=== PATIENT | female | born 1975 | race Caucasian/White ===

== ENCOUNTER 2016-12-06 10:08 | Day surgery (SDC) | payer OTHER ==
[2016-12-05 14:53] VITALS: BMI 22.2
[~2016-12-06 10:08] MED LIST: ACETAMINOPHEN 325 MG TABLET (FP) PO PRN; CEFAZOLIN 1 GM/D5W 50 ML IVPB ONE
[2016-12-06] MEDS ORDERED: LIDOCAINE HCL 2% (20ML MULTI-DOSE VIAL) NR ONE (10:32)
[2016-12-06] MEDS ORDERED: BUPIVACAINE HCL/PF 0.5% (5MG/ML) 10 ML VIAL ONE (10:32)
[2016-12-06] MEDS ORDERED: MIDAZOLAM HCL 2 MG/2 ML SINGLE DOSE VIAL ONE (11:52)
[2016-12-06] MEDS ORDERED: DEXAMETHASONE SOD PHOSPHATE 4 MG/1 ML VIAL ONE (11:56)
[2016-12-06] MEDS ORDERED: PROPOFOL 20 ML ONE ×4 (11:56)
[2016-12-06] MEDS ORDERED: LIDOCAINE HCL 2% (50ML VIAL) PNB ONE (12:20)
[2016-12-06] MEDS ORDERED: BUPIVACAINE HCL/PF 0.5% (5MG/ML) 10 ML VIAL IJ ONE (12:50)
[2016-12-06] MEDS ORDERED: DEXAMETHASONE SOD PHOSPHATE 4 MG/1 ML VIAL NR ONE (12:50)
[2016-12-06 13:16] VITALS: TEMP 97.9
[2016-12-06 14:08] VITALS: BP 115/68; PULSE 52
--- NOTE | 2016-12-08 13:22 | PATH ---
Surgical Pathology Report Patient Name: FRANKI SANTIAGO [facility]. Rec. #: [id number] /Age/Gender: 1975 (Age: 41) / F Account: [id number] Location: [facility] Taken: 12/06/2016 Received: 12/06/2016 Reported: 12/08/2016 Physicians: Matt Reza Specimen(s) Received NEUROMA RIGHT FOOT Clinical History Mortons neuroma right foot Final Diagnosis SOFT TISSUE, RIGHT FOOT, EXCISION: BENIGN PERIPHERAL NERVE WITH DISTORTED ARCHITECTURE CONSISTENT WITH NEUROMA, WITH ATTACHED SYNOVIUM. Electronically Signed Joby Rogel M.D. Gross Description Received in formalin, labeled "neuroma right foot," are 2 nelson soft tissue fragments measuring 0.8 and 1.0 cm in greatest dimension. The larger portion is bisected and the specimen is entirely submitted in one cassette. 12/07/201612/07/2016
--- NOTE | 2016-12-10 05:58 | OP ---
DATE OF OPERATION: 12/06/2016 PREOPERATIVE DIAGNOSIS: Cesar neuroma, right foot. POSTOPERATIVE DIAGNOSIS: Cesar neuroma, right foot. PROCEDURE: Excision of Cesar neuroma, right foot. ANESTHESIA: Local with MAC (6.0 mL lidocaine 2% plain used). HEMOSTASIS: Attained using a pneumatic ankle tourniquet, right ankle, at 250 mmHg. ESTIMATED BLOOD LOSS: Less than 1.0 mL total. SURGEON: Matt Sommers DPM ACADEMIC COUNSELOR: Arvin Pulido MD PROCEDURE: With patient's vital signs noted to be stable, she was brought to the operating room and placed on the OR table in the supine position. Under general sedation, local anesthesia was administered and attained via a local infiltrate at the 3rd intermetatarsal space, right foot. Now, an orthopedic sterile prepping and draping of the right foot was performed and subsequently the well-padded tourniquet at the right ankle was inflated. At this juncture, a dorsal linear incision 2.0 cm in length was made centered at the interspace between the 3rd and 4th MPJ of the right foot. The incision terminated at the distal aspect of the dorsal toe web of the 3rd interspace, right foot. The incision was carefully deepened, and the skin and subcutaneous tissues were reflected away from the deeper capsular and underlying structures via sharp and blunt dissection. At this point, the intermetatarsal ligament was visualized and transected. Now, using deep retraction the neuroma was visualized and was excised from its distal and proximal attachments to the proper digital nerve via sharp dissection. The area was flushed with sterile saline; and now the deep, the capsular, and the subcutaneous tissues were closed using simple sutures of 4-0 Vicryl. The skin was closed using a subcuticular stitch of 4-0 Prolene. Postoperative injectable consisting of 1.0 mL of dexamethasone and 1.0 mL of 0.5% Marcaine plain was used. Tourniquet was deflated. Sterile dressings were placed prior to this, and normal vascular status was noted in all digits of the right foot. The prognosis is good. Wound expectancy is clean. MATT SOMMERS DPM [id number]
== END 2016-12-06 14:00 | disposition home or self-care (01) ==
LOC: FASU 10:08
PROVIDERS: ATTEND Podiatrist
PROC: 0JBQ0ZX Excision of Right Foot Subcutaneous Tissue and Fascia, Open Approach, Diagnostic (ICD-10-PCS; principal; 2016-12-06 12:00)
DX: G57.61 Lesion of plantar nerve, right lower limb (principal)
CPT/HCPCS: 84703; 88304-TC